=== PATIENT | female | born 1965 | race Caucasian/White ===

== ENCOUNTER 2018-10-28 09:59 | Day surgery (SDC) | payer OTHER, BC ==
[2018-10-28] MEDS ORDERED: SOD CHLORIDE 0.9% 1,000 ML IV (11:30)
[2018-10-28] MEDS ORDERED: CEFAZOLIN 1 GM/50 ML (PMX) 50 ML IVPB (12:00)
[2018-10-28] MEDS ORDERED: SODIUM CL BACTERIOSTATIC 30 ML INJ (13:14)
[2018-10-28] MEDS ORDERED: IOHEXOL 300MG/ML 30 ML BTL (13:15)
[2018-10-28] MEDS ORDERED: MIDAZOLAM 1 MG/ML 2 ML INJ (13:19)
[2018-10-28] MEDS ORDERED: PROPOFOL 200 MG INJ (13:19)
[2018-10-28] MEDS ORDERED: FENTAnyl 50 MCG/ML VIAL (13:19)
[2018-10-28] MEDS ORDERED: METOCLOPRAMIDE 10 MG INJ IV (13:30)
[2018-10-28] MEDS ORDERED: ONDANSETRON 4 MG INJ IV (13:30)
[2018-10-28] MEDS ORDERED: FENTAnyl 50 MCG/ML VIAL IV ×2 (13:30)
[2018-10-28] MEDS ORDERED: HYDROmorphONE 1 MG/5 ML IV SYRINGE IV ×2 (13:30)
[2018-10-28] MEDS ORDERED: hydrALAzine 20 MG INJ IV (13:30)
[2018-10-28] MEDS ORDERED: LABETALOL HCL 20MG INJ IV (13:30)
[2018-10-28] MEDS: LIDOCAINE 1% (MPF) 30 ML INJ (13:56)
[2018-10-28] MEDS: METHYLPREDNISOLONE ACET 80 MG/ML 1 ML (13:56)
== END 2018-10-28 14:47 | disposition home or self-care (01) ==
LOC: SDS 09:59
DX: M48.061 Spinal stenosis, lumbar region without neurogenic claudication (principal); E11.9 Type 2 diabetes mellitus without complications; Z79.84 Long term (current) use of oral hypoglycemic drugs
CPT/HCPCS: 62323; 72100; 82962

== ENCOUNTER 2018-11-29 11:34 | Day surgery (SDC) | payer OTHER ==
[2018-11-29] MEDS: CEFAZOLIN 1 GM/50 ML (PMX) 50 ML IVPB (06:00)
[2018-11-29] MEDS: OXYCODONE/ACETAMINOPHEN (10/325) TAB PO (15:15)
[2018-11-29] MEDS ORDERED: PROPOFOL 20 ML (15:43)
[2018-11-29] MEDS ORDERED: FENTAnyl 50 MCG/ML VIAL (15:43)
[2018-11-29] MEDS: LIDOCAINE 1% (MPF) 10 ML INJ (15:52)
[2018-11-29] MEDS: METHYLPREDNISOLONE ACET 80 MG/ML 1 ML (15:52)
[2018-11-29] MEDS: ONDANSETRON 4 MG INJ IV (16:15)
[2018-11-29] MEDS ORDERED: LABETALOL HCL 20MG INJ IV (16:30)
[2018-11-29] MEDS ORDERED: hydrALAzine 20 MG INJ IV (16:30)
[2018-11-29] MEDS ORDERED: DIPHENHYDRAMINE 50 MG INJ IV (16:30)
[2018-11-29] MEDS ORDERED: MEPERIDINE 25 MG INJ IV (16:30)
[2018-11-29] MEDS ORDERED: OXYCODONE/ACETAMINOPHEN (5/325) TAB PO ×2 (16:30)
[2018-11-29] MEDS ORDERED: FENTAnyl 50 MCG/ML VIAL IV ×3 (16:30)
[2018-11-29] MEDS ORDERED: MIDAZOLAM 1 MG/ML 2 ML INJ IV (16:30)
[2018-11-29] MEDS ORDERED: METOCLOPRAMIDE 10 MG INJ IV (16:30)
[2018-11-29] MEDS ORDERED: EPHEDrine 25 MG/5 ML SYG IV (16:30)
== END 2018-11-29 16:50 | disposition home or self-care (01) ==
LOC: SDS 11:34
DX: M47.892 Other spondylosis, cervical region (principal); M50.20 Other cervical disc displacement, unspecified cervical region; M48.02 Spinal stenosis, cervical region; E11.9 Type 2 diabetes mellitus without complications; J45.909 Unspecified asthma, uncomplicated; Z79.84 Long term (current) use of oral hypoglycemic drugs
CPT/HCPCS: 62320; 72040; 82962